=== PATIENT | female | born 1985 | race African-American/Black ===

== ENCOUNTER 2019-08-07 21:43 | Emergency (ER) | payer SELFPAY ==
[2019-08-07 22:03] VITALS: BP 120/77; PULSE 83; TEMP 98.6; BMI 34.9
[2019-08-07 23:22] LABS: EPI CELLS 1.8 /HPF (0-5/HPF); HYALINE CASTS 6 /lpf (0-8); URINE APPEARANCE CLEAR; URINE BILIRUBIN NEGATIVE (NEGATIVE); URINE COLOR YELLOW; URINE GLUCOSE (UA) NEGATIVE (NEGATIVE); URINE KETONE NEGATIVE (NEGATIVE); URINE LEUK ESTERASE 2+ (NEGATIVE); URINE NITRITE NEGATIVE (NEGATIVE); URINE PROTEIN NEGATIVE (NEGATIVE); URINE RBC 2 /hpf (0-4); URINE UROBILINOGEN 0.2 mg/dL (0.2-1.0); URINE WBC 33 /hpf (0-5)
[2019-08-07] MEDS ORDERED: AZITHROMYCIN 500 MG TABLET PO ONE (23:46)
[2019-08-07] MEDS ORDERED: ACETAMINOPHEN 325 MG TABLET (FP) PO ONE (23:50)
--- NOTE | 2019-08-07 23:50 | PDOC ---
History of Present Illness - General Chief Complaint: Vaginal Sxs Stated Complaint: SORE THROAT Time Seen by Provider: 08/07/19 22:12 - History of Present Illness Initial Comments: 08/07/19 23:47 CHIEF COMPLAINT: vaginal sxs HISTORY OF PRESENT ILLNESS: 34 yo F with no PMH presents to ED with vaginal irritation and itching x 2 days. Patient states two days ago she felt like she had a yeast infection due to vaginal itching, so yesterday she bought Monistat vaginal suppository. She states the itching and irritation got worse and her vaginal area felt "swollen." No recent travel or sick contacts. PAST MEDICAL HISTORY: Denies past medical history FAMILY HISTORY: Denies SOCIAL HISTORY:Denies tobacco, alcohol, illicit drug use. SURGICAL HISTORY: Denies ALLERGIES: PCN REVIEW OF SYSTEMS General/Constitutional: Denies fever or chills. Denies weakness, weight change. HEENT: Denies change in vision. Denies ear pain or discharge. Denies sore throat. Cardiovascular: Denies chest pain or shortness of breath. Respiratory: Denies cough, wheezing, or hemoptysis. Gastrointestinal: Denies nausea, vomiting, diarrhea or constipation. Denies rectal bleeding. Genitourinary: Vaginal itching and irritation x 2 days. Musculoskeletal: Denies joint or muscle swelling or pain. Denies neck or back pain. Skin and breasts: Denies rash or easy bruising. Neurologic: Denies headache, vertigo, loss of consciousness, or loss of sensation. Psychiatric: Denies depression or anxiety. PHYSICAL EXAM General Appearance: Well-appearing, appropriately dressed. No apparent distress , no intoxication. HEENT: EOMI, PERRLA, normal ENT inspection, normal voice, TMs normal, pharynx normal. No conjunctival pallor. No photophobia, scleral icterus. Neck: Supple. Trachea midline. No tenderness, rigidity, carotid bruit, stridor , lymphadenopathy, or thyromegaly. Respiratory/Chest: Lungs CTAB. No shortness of breath, chest tenderness, respiratory distress, accessory muscle use. No crackles, rales, rhonchi, stridor , wheezing, dullness Cardiovascular: RRR. S1, S2. No JVD, murmur, bradycardia, tachycardia. Vascular Pulses: Dorsalis-Pedis (R): 2+, Dorsalis-Pedis (L): 2+ Gastrointestinal/Abdominal: Normal bowel sounds. Abdomen soft, non-distended. No tenderness or rebound tenderness. No organomegaly, pulsatile mass, guarding , hernia, hepatomegaly, splenomegaly. Pelvic: External genitalia normal without lesions. Vaginal vault with yellow, clumpy discharge. Cervix is long and closed. No cervical motion tenderness. Uterus is nontender and normal in size. Adnexa are nontender and without masses. Lymphatic: No adenopathy, tenderness. Musculoskeletal/Extremities: Normal inspection. FROM of all extremities, normal capillary refill. Pelvis Stable. No CVA tenderness. No tenderness to extremities, pedal edema, swelling, erythema or deformity. Integumentary: Appropriate color, dry, warm. No cyanosis, erythema, jaundice or rash Neurologic: preparer making department II-XII intact. Fully oriented, alert. Appropriate mood/affect. Motor strength 5/5. No appreciable EOM palsy, facial droop or sensory deficit. Past History - Past Medical History Allergies/Adverse Reactions: Allergies Allergy/AdvReac Type Severity Reaction Status Date / Time No Known Allergies Allergy Verified 08/07/19 22:03 Home Medications: Ambulatory Orders Docusate Sodium [Colace -] 100 mg PO TID #21 capsule 07/14/16 Ibuprofen [Motrin -] 600 mg PO QID PRN #30 tablet 07/14/16 Nitrofurantoin Monohyd/M-Cryst [Macrobid -] 100 mg PO BID #14 capsule 08/07/19 COPD: No - Reproductive History Is Patient Now?: No - Psycho Social/Smoking Cessation Hx Smoking History: Former smoker Have you smoked in the past 12 months: No Information on smoking cessation initiated: No *Physical Exam - Vital Signs Last Vital Signs Temp Pulse Resp BP Pulse Ox 98.6 F 83 18 120/77 99 08/07/19 22:01 08/07/19 22:01 08/07/19 22:01 08/07/19 22:01 08/07/19 22:01 ED Treatment Course - ADDITIONAL ORDERS Additional order review: Laboratory Results 08/07/19 08/07/19 23:00 23:00 Urine Color Yellow Urine Appearance Clear Urine pH 6.0 Ur Specific [place] 1.022 Urine Protein Negative Urine Glucose (UA) Negative Urine Ketones Negative Urine Blood Negative Urine Nitrite Negative Urine Bilirubin Negative Urine Urobilinogen 0.2 Ur Leukocyte Esterase 2+ H Urine WBC (Auto) 33 Urine RBC (Auto) 2 Urine Casts (Auto) 6 U Epithel Cells (Auto) 1.8 Urine Bacteria (Auto) 96.0 Urine HCG, Qual Negative Medical Decision Making - Medical Decision Making 08/08/19 00:09 34 yo F with no PMH presents to ED with vaginal irritation x 2 days. -UA, Ucx -ct/gc -upreg patient requests to be treated for stds empirically. -azith -ceftrixone UA positive for UTI, macrobid rx sent to pharm. Pt c/o of vaginal pain with urination. -azo -tylenol Discharge - Discharge Information Problems reviewed: Yes Clinical Impression/Diagnosis: Urinary tract infection, Concern about STD in female without diagnosis Condition: Stable Disposition: HOME - Admission No - Additional Discharge Information Prescriptions: Nitrofurantoin Monohyd/M-Cryst [Macrobid -] 100 mg PO BID #14 capsule - Follow up/Referral Referrals: Estrada Coy MD [Primary Care Provider] - - Patient Discharge Instructions Patient Printed Discharge Instructions: Facts About Sexually Transmitted Infections, DI for Urinary Tract Infection (UTI) - Post Discharge Activity Work/Back to School Note: Back to Work
[2019-08-07] MEDS ORDERED: LIDOCAINE HCL 1%, 10 MG/ML (20ML VIAL) ONE (23:59)
[2019-08-07] MEDS ORDERED: ACETAMINOPHEN 325 MG TABLET (FP) ONE (23:59)
[2019-08-07] MEDS ORDERED: AZITHROMYCIN 250 MG TABLET ONE (23:59)
[2019-08-07] MEDS ORDERED: PHENAZOPYRIDINE HCL 100 MG TABLET (FP) ONE (23:59)
[2019-08-08] MEDS ORDERED: cefTRIAXone SODIUM 1 GM VIAL ONE
[2019-08-08] MEDS ORDERED: PHENAZOPYRIDINE HCL 100 MG TABLET (FP) PO SCH (09:00)
== END 2019-08-08 00:08 | disposition home or self-care (01) ==
LOC: JERFT 21:43
DX: N39.0 Urinary tract infection, site not specified (principal); Z71.1 Person with feared health complaint in whom no diagnosis is made
CPT/HCPCS: 36415; 81003; 84703; 87077; 87086; 87491; 87591; 99282-25

== ENCOUNTER 2019-12-02 22:05 | Emergency (ER) | payer SELFPAY ==
[2019-12-02 22:10] VITALS: BP 115/73; PULSE 81; TEMP 98.3; BMI 34.2
--- NOTE | 2019-12-02 23:21 | PDOC ---
History of Present Illness - General Chief Complaint: Pain Stated Complaint: CHEST PAIN Time Seen by Provider: 12/02/19 22:43 History Source: Patient - History of Present Illness Initial Comments: 12/02/19 23:18 34 year old female c/o left sided chest pain worse with movement x 4 days. denies trauma or injury. NVD abdominal pain. patient took ibuprofen worse with pain. former smoker No PMHX Past History - Past Medical History Allergies/Adverse Reactions: Allergies Allergy/AdvReac Type Severity Reaction Status Date / Time Penicillins Allergy Verified 12/02/19 22:11 Home Medications: Ambulatory Orders Docusate Sodium [Colace -] 100 mg PO TID #21 capsule 07/14/16 Ibuprofen [Motrin -] 600 mg PO QID PRN #30 tablet 07/14/16 Nitrofurantoin Monohyd/M-Cryst [Macrobid -] 100 mg PO BID #14 capsule 08/07/19 COPD: No - Psycho Social/Smoking Cessation Hx Smoking History: Former smoker Have you smoked in the past 12 months: No If you are a former smoker, when did you quit?: 2017 Information on smoking cessation initiated: No Hx Alcohol Use: No Drug/Substance Use Hx: No Review of Systems - Review of Systems Able to Perform ROS?: Yes Is the patient limited Lithuanian proficient: No Constitutional: No: Symptoms Reported, See HPI, Chills, Diaphoresis, Fever, Loss of Appetite, Malaise, Night Sweats, Weakness, Weight Stable, Unintentional Wgt. Loss, Unexplained wgt Loss, Other Respiratory: No: Symptoms reported, See HPI, Cough, Orthopnea, Shortness of Breath, SOB with Exertion, SOB at Rest, Stridor, Wheezing, Productive cough, Hemoptysis, Other Cardiac (ROS): Yes: Chest Pain. No: Symptoms Reported, See HPI, Edema, Irregular Heart Rate, Lightheadedness, Palpitations, Syncope, Chest Tightness, Other ABD/GI: No: Symptoms Reported, See HPI, Abdominal Distended, Abd. Pain w/ defecation, Blood Streaked Bowels, Constipated, Diarrhea, Difficulty Swallowing , Nausea, Poor Appetite, Poor Fluid Intake, Rectal Bleeding, Vomiting, Indigestion, Abdominal cramping, Tarry Stools, Other *Physical Exam - Vital Signs Last Vital Signs Temp Pulse Resp BP Pulse Ox 98.3 F 81 18 115/73 99 12/02/19 22:06 12/02/19 22:06 12/02/19 22:06 12/02/19 22:06 12/02/19 22:06 - Physical Exam General Appearance: Yes: Appropriately Dressed Respiratory/Chest: positive: Chest Tender (left sided chest tenderness), Lungs Clear, Normal Breath Sounds Cardiovascular: positive: Regular Rhythm, Regular Rate Extremity: positive: Normal Capillary Refill, Normal Inspection, Normal Range of Motion Integumentary: positive: Normal Color, Dry, Warm Neurologic: positive: Fully Oriented, Alert Heart Score/ECG Review - History History: Slightly suspicious - Electrocardiogram EKG: Normal - Age Age: </= 45 - Risk Factors Based on the list above the patient has:: No risk factors known - Troponin Troponin: </= normal limit - Score Heart Score - Total: 0 - ECG Intrepretation Rhythm: Regular Rhythm Comment:: 12/03/19 02:43 sinus lata ED Treatment Course - LABORATORY CBC & Chemistry Diagram: 12/03/19 00:11 12/03/19 00:11 Discharge - Discharge Information Problems reviewed: Yes Clinical Impression/Diagnosis: Left-sided chest pain Disposition: HOME - Follow up/Referral Referrals: Estrada Coy MD [Primary Care Provider] - Call tomorrow Greg Shipman MD [Staff Physician] - - Patient Discharge Instructions Patient Printed Discharge Instructions: DI for Atypical Chest Pain Additional Instructions: you may take ibuprofen every 6 hours as needed for pain follow up with your doctor as soon as possible. - Post Discharge Activity
[2019-12-02] MEDS ORDERED: IBUPROFEN 600 MG TABLET (FP) PO ONE (23:28)
[2019-12-03] MEDS ORDERED: ASPIRIN 81 MG CHEWABLE TABLETS PO ONE (00:02)
[2019-12-03 00:31] LABS: BASO % 0.9 % (0-2.0); EOS % 1.1 % (0-4.5); HEMATOCRIT 38.7 % (32.4-45.2); HEMOGLOBIN 12.8 GM/dL (10.7-15.3); LYMPH % 37.2 % (8-40); MCH 28.2 pg (25.7-33.7); MCHC 33.1 g/dl (32.0-36.0); MEAN PLT VOLUME 7.8 fl (7.5-11.1); MONO % 5.3 % (3.8-10.2); NEUT % 55.5 % (42.8-82.8); PLATELET COUNT 248 K/MM3 (134-434); RBC 4.56 M/mm3 (3.60-5.2); RDW 13.2 % (11.6-15.6); WHITE BLOOD COUNT 10.9 K/mm3 (4.0-10.0)
[2019-12-03 00:42] LABS: PROTHROMBIN TIME (PATIENT) 11.8 SEC (9.7-13.0)
[2019-12-03 00:59] LABS: ALBUMIN 3.6 g/dl (3.4-5.0); ALK PHOS 67 U/L (45-117); ANION GAP 6 MMOL/L (8-16); BILIRUBIN,TOTAL 0.1 mg/dL (0.2-1); BLOOD UREA NITROGEN 14.6 mg/dL (7-18); CALCIUM 8.9 mg/dL (8.5-10.1); CHLORIDE 108 mmol/L (98-107); CO2 27 mmol/L (21-32); CREATININE 0.9 mg/dL (0.55-1.3); GLUCOSE,RANDOM 102 mg/dL (74-106); POTASSIUM 3.9 mmol/L (3.5-5.1); SGOT/AST 13 U/L (15-37); SGPT/ALT 20 U/L (13-61); SODIUM 140 mmol/L (136-145); TOT PROT 7.1 g/dl (6.4-8.2)
[2019-12-03] MEDS ORDERED: IBUPROFEN 600 MG TABLET (FP) PO ONE ×2 (01:06→01:09)
--- NOTE | 2019-12-03 11:14 | EKG ---
Test Reason : Blood Pressure : / mmHG Vent. Rate : 064 BPM Atrial Rate : 064 BPM P-R Int : 184 ms QRS Dur : 084 ms QT Int : 394 ms P-R-T Axes : 050 034 034 degrees QTc Int : 406 ms NORMAL SINUS RHYTHM CANNOT RULE OUT ANTERIOR INFARCT , AGE UNDETERMINED ABNORMAL ECG NO PREVIOUS ECGS AVAILABLE Confirmed by MD MELVIN, CURT ([id number]) on 12/03/2019 11:14:12 AM Referred By: Confirmed By:CURT CHARLES MD
--- NOTE | 2019-12-03 16:12 | EKG ---
Test Reason : Blood Pressure : / mmHG Vent. Rate : 059 BPM Atrial Rate : 059 BPM P-R Int : 166 ms QRS Dur : 076 ms QT Int : 400 ms P-R-T Axes : 011 051 037 degrees QTc Int : 396 ms SINUS BRADYCARDIA NONSPECIFIC ST ABNORMALITY BORDERLINE ECG Confirmed by MD MELVIN, CURT ([id number]) on 12/03/2019 4:11:35 PM Referred By: Confirmed By:CURT CHARLES MD
== END 2019-12-03 01:39 | disposition home or self-care (01) ==
LOC: JERFT 22:05 → JER 22:05
DX: R07.9 Chest pain, unspecified (principal); Z87.891 Personal history of nicotine dependence; Z88.0 Allergy status to penicillin
CPT/HCPCS: 36415; 71046-TC-FY; 80053; 82550; 83735; 84484; 85025; 85610; 85730; 93005; 93010; 99285-25

== ENCOUNTER 2022-06-11 11:18 | Emergency (ER) | payer OTHER ==
[2022-06-11 11:26] VITALS: BP 109/71; PULSE 91; RESP 18; TEMP 98; BMI 32.0
[2022-06-11] MEDS ORDERED: DEXAMETHASONE LIQUID 0.5 MG/5 ML PO ONE (11:59)
[2022-06-11] MEDS ORDERED: KETOROLAC TROMETHAMINE 30 MG/1 ML VIAL IM ONE (11:59)
[2022-06-11] MEDS ORDERED: KETOROLAC TROMETHAMINE 30 MG/1 ML VIAL ONE (12:27)
[2022-06-11] MEDS ORDERED: DEXAMETHASONE SOD PHOSPHATE 10 MG/1 ML VIAL ONE (12:28)
== END 2022-06-11 13:50 | disposition home or self-care (01) ==
LOC: JER 11:18
PROC: 3E0233Z Introduction of Anti-inflammatory into Muscle, Percutaneous Approach (ICD-10-PCS; principal; 2022-06-11)
DX: J02.9 Acute pharyngitis, unspecified (principal)
CPT/HCPCS: 87651; 99284-25

== ENCOUNTER 2024-06-28 15:56 | Emergency (ER) | payer OTHER ==
[2024-06-28 16:19] VITALS: BP 120/77; PULSE 78; RESP 19; TEMP 99; BMI 38.9
== END 2024-06-28 17:30 | disposition home or self-care (01) ==
LOC: JER 15:56
DX: R51.9 Headache, unspecified (principal); G50.0 Trigeminal neuralgia; R22.0 Localized swelling, mass and lump, head
CPT/HCPCS: 99283-25